=== PATIENT | female | born 1980 | race African-American/Black ===

== ENCOUNTER 2017-02-21 12:18 | Emergency (ER) | payer OTHER ==
[2017-02-21 12:26] VITALS: BP 126/72; PULSE 91; TEMP 98.5; BMI 28.3
[2017-02-21 13:45] LABS: BASOPHIL 1.1 % (0-2.0); EOSINOPHIL 1.6 % (0-4.5); MCH 22.8 pg (25.7-33.7); MCHC 30.6 g/dl (32.0-36.0); MEAN CELL VOLUME 74.4 fl (80-96); MEAN PLT VOLUME 7.5 fl (7.5-11.1); NEUTROPHILS 45.6 % (42.8-82.8); PLATELET COUNT 522 K/MM3 (134-434); RDW 27.3 % (11.6-15.6); WHITE BLOOD COUNT 4.5 K/mm3 (4.0-10.0)
--- NOTE | 2017-02-21 13:52 | PDOC ---
History of Present Illness - General History Source: Patient - History of Present Illness Timing/Duration: reports: constant <PamelaManpreet - Last Filed: 02/21/17 14:17> <Jese Bartlett - Last Filed: 02/23/17 09:10> - General Chief Complaint: Vaginal Bleeding Stated Complaint: VAGINAL BLEEDING Time Seen by Provider: 02/21/17 12:41 Past History - Past Medical History Anemia: Yes - Surgical History Appendectomy: Yes - Psycho/Social/Smoking Cessation Hx Anxiety: No Suicidal Ideation: No Smoking History: Never smoked Hx Alcohol Use: Yes (SOCIAL) Drug/Substance Use Hx: No Substance Use Type: None <Manpreet Santiago - Last Filed: 02/21/17 14:17> <Jese Bartlett - Last Filed: 02/23/17 09:10> - Past Medical History Allergies/Adverse Reactions: Allergies Allergy/AdvReac Type Severity Reaction Status Date / Time No Known Allergies Allergy Verified 02/21/17 12:25 Home Medications: Ambulatory Orders Iron 18 mg PO DAILY 02/21/17 Review of Systems - Review of Systems Constitutional: No: Malaise, Weakness Respiratory: No: Shortness of Breath ABD/GI: No: Nausea, Vomiting, Abdominal cramping <Manpreet Santiago - Last Filed: 02/21/17 14:17> *Physical Exam - Vital Signs Last Vital Signs Temp Pulse Resp BP Pulse Ox 98.5 F 91 H 20 126/72 100 02/21/17 12:22 02/21/17 12:22 02/21/17 12:22 02/21/17 12:22 02/21/17 12:22 - Physical Exam General Appearance: Yes: Appropriately Dressed. No: Apparent Distress HEENT: positive: Normal Voice Neck: positive: Supple Respiratory/Chest: positive: Lungs Clear, Normal Breath Sounds. negative: Respiratory Distress Cardiovascular: positive: Regular Rate, S1, S2 Female Pelvic Exam: positive: normal external exam, normal adnexa, vaginal bleeding, other (mod vag bleed). negative: CMT, discharge, adnexal tenderness Gastrointestinal/Abdominal: positive: Soft. negative: Tender Integumentary: positive: Dry, Warm Neurologic: positive: Fully Oriented, Alert, Normal Mood/Affect <Manpreet Santiago - Last Filed: 02/21/17 14:17> - Vital Signs Last Vital Signs Temp Pulse Resp BP Pulse Ox 98.5 F 91 H 20 126/72 100 02/21/17 12:22 02/21/17 12:22 02/21/17 12:22 02/21/17 12:22 02/21/17 12:22 <Jese Bartlett - Last Filed: 02/23/17 09:10> ED Treatment Course - LABORATORY CBC & Chemistry Diagram: 02/21/17 13:16 <Manpreet Santiago - Last Filed: 02/21/17 14:17> - LABORATORY CBC & Chemistry Diagram: 02/21/17 13:16 - ADDITIONAL ORDERS Additional order review: 02/21/17 13:16 RBC 4.48 MCV 74.4 L MCHC 30.6 L RDW 27.3 H MPV 7.5 Neutrophils % 45.6 Lymphocytes % 39.3 Monocytes % 12.4 H Eosinophils % 1.6 Basophils % 1.1 <Jese Bartlett - Last Filed: 02/23/17 09:10> Medical Decision Making - Medical Decision Making 02/21/17 13:20 36 -year-old female, history of dysfunctional uterine bleeding with no specific cause on previous workup with her [employer] as per patient, anemia, on iron pills, was put on control in December of this year, but not currently taking meds secondary to insurance issues per patient, presents with persistent vaginal bleeding. Patient states she has been bleeding since June of last year. States bleeding sometimes heavy and light. Denies any abdominal cramping, weakness, dizziness, nausea or vomiting. Patient states she is tired of bleeding and wants something done See exam DUB w/ persistent vag bleed Neg w/u in past including US per pt Not currently on OCPs 2/2 insurance issues Well sirisha and stable w/ mild to mod vag bleed on exam, abd benign -will check labs r/o worsening anemia and d/w dispo w/ [employer] 02/21/17 13:52 02/21/17 14:14 Case d/w Dr Porras, pt's labourers, aware of H/H. States pt can f/u in the office within the week. Pt currently stable for discharge 02/21/17 14:18 <Manpreet Santiago - Last Filed: 02/21/17 14:17> - Medical Decision Making 02/23/17 09:10 The patient was seen and evaluated in conjunction with WINNIE Santiago under my direct supervision, ancillary studies were reviewed. I agree with the plan as outlined by WINNIE Santiago . <Jese Bartlett - Last Filed: 02/23/17 09:10> *DC/Admit/Observation/Transfer <Manperet Santiago - Last Filed: 02/21/17 14:17> <Jese Bartlett - Last Filed: 02/23/17 09:10> Diagnosis at time of Disposition: DUB (dysfunctional uterine bleeding) - Discharge Dispostion Disposition: HOME Condition at time of disposition: Stable - Patient Instructions Printed Discharge Instructions: DI for Vaginal Bleeding Additional Instructions: Please follow up with your [employer] P[employer]ER
[2017-02-21 13:59] LABS: INR 1.04 (0.82-1.09); PROTHROMBIN TIME (PATIENT) 11.5 SEC (9.98-11.88)
[2017-02-21 14:21] LABS: ANISOCYTOSIS 2+; HYPOCHROMIA 1+; OVALOCYTES FEW; PLATELET ESTIMATE INCREASED (NORMAL)
[2017-02-21 14:23] LABS: HIV 1 & 2 AB NEGATIVE; HIV 1 AGp24 NEGATIVE
== END 2017-02-21 14:35 | disposition home or self-care (01) ==
LOC: JER 12:18
DX: N93.8 Other specified abnormal uterine and vaginal bleeding (principal)
CPT/HCPCS: 36415; 84703; 85025; 85610; 87389; 99282-25

== ENCOUNTER 2018-07-14 01:34 | Emergency (ER) | payer OTHER ==
[2018-07-14 01:55] VITALS: BP 143/76; PULSE 74; TEMP 97.6; BMI 25.8
[2018-07-14] MEDS ORDERED: METHOCARBAMOL 500 MG TABLET ONE (02:19)
[2018-07-14] MEDS ORDERED: METHOCARBAMOL 500 MG TABLET PO ONE (02:19)
[2018-07-14] MEDS ORDERED: ACETAMINOPHEN 1000 MG/100 ML VIAL (NON FORMULARY) IVPB ONE (02:21)
[2018-07-14] MEDS ORDERED: ACETAMINOPHEN INJECTION 100 ML IVPB ONE (02:28)
--- NOTE | 2018-07-14 02:28 | PDOC ---
History of Present Illness - General Chief Complaint: Back Pain Stated Complaint: BACK PAIN Time Seen by Provider: 07/14/18 02:04 History Source: Patient Exam Limitations: No Limitations - History of Present Illness Initial Comments: 37 y/o F hx of PCOS presents with nordatating LBP that started 5 days ago. Denies trauma or heavy work at the time. States her period later started that day, but the lower back pain grew worse. Was taking Alleve without much relief in pain. However, states yesterday, pain wasn't too bad. Then today, she carried some heavy groceries which made her back pain worse. States feels stiffness in her lower back. Denies prior back problems, back surgeries, fever, sob, cp, abd pain, n/v, dysuria, numbness/tingling/weakness of extremities, bowel/bladder incontinence. 07/14/18 02:23 Past History - Past Medical History Allergies/Adverse Reactions: Allergies Allergy/AdvReac Type Severity Reaction Status Date / Time No Known Allergies Allergy Verified 07/14/18 01:53 Home Medications: Ambulatory Orders Iron 18 mg PO DAILY 02/21/17 Methocarbamol [Robaxin -] 500 mg PO TID PRN #21 tablet 07/14/18 Anemia: Yes COPD: No HTN: Yes Other medical history: PCOS - Surgical History Appendectomy: Yes - Immunization History Immunization Up to Date: Yes - Suicide/Smoking/Psychosocial Hx Smoking History: Former smoker Have you smoked in the past 12 months: No Information on smoking cessation initiated: No Hx Alcohol Use: No Drug/Substance Use Hx: No Substance Use Type: None Trauma Specific PMHX - Complaint Specific PMHX Back Injury: No Neck Injury: No Hx Sacro Iliac Joint Dysfunction: No Review of Systems - Review of Systems Comments:: See HPI 07/14/18 02:28 *Physical Exam - Vital Signs Last Vital Signs Temp Pulse Resp BP Pulse Ox 97.6 F 74 20 143/76 99 07/14/18 01:53 07/14/18 01:53 07/14/18 01:53 07/14/18 01:53 07/14/18 01:53 - Physical Exam General Appearance: No: Apparent Distress Neck: positive: Supple Respiratory/Chest: positive: Lungs Clear, Normal Breath Sounds Cardiovascular: positive: Regular Rhythm, Regular Rate, S1, S2 Gastrointestinal/Abdominal: positive: Normal Bowel Sounds, Soft. negative: Tender, Distended, Guarding, Rebound, Tenderness Musculoskeletal: positive: Muscle Spasm. negative: CVA Tenderness, Vertebral Tenderness Extremity: positive: Normal Inspection Neurologic: positive: manager print II-XII NML intact, Fully Oriented, Alert, Normal Mood/ Affect, Motor Strength 5/5. negative: Numbness, Sensory Deficit ED Treatment Course - Medications Given in the ED: ED Medications Discontinued Medications Generic Name Dose Route Start Last Admin Trade Name Lyndonq PRN Reason Stop Dose Admin Methocarbamol 1,000 mg 07/14/18 02:19 07/14/18 02:22 Robaxin - PO 07/14/18 02:20 1,000 mg ONCE ONE Administration Medical Decision Making - Medical Decision Making 37 y/o F hx of PCOS presents with atraumatic, nonradiating LBP, worsened after lifting heavy groceries. Patient also with recent start of her menstruation cycle. Could possibly be muscle spasm/strain given pain is worse with movement of spine. However, will also check test. Unlikely cauda equina, kidney stones, pyelo, UTI Plan: UCG, Tylenol, Robaxin 07/14/18 02:30 UCG negative Patient given Tylenol, Robaxin and Toradol On reassessment, patient still with some muscle stiffness but improved from before New rx: Robaxin 07/14/18 04:35 *DC/Admit/Observation/Transfer Diagnosis at time of Disposition: Muscle spasm of back - Discharge Dispostion Disposition: HOME Condition at time of disposition: Good Decision to Admit order: No - Prescriptions Prescriptions: Methocarbamol [Robaxin -] 500 mg PO TID PRN #21 tablet PRN Reason: Muscle Spasms - Referrals Referrals: Kaykay Reyes MD [Non Staff, Medical] - 3 days - Patient Instructions Printed Discharge Instructions: DI for Back Spasm - Post Discharge Activity Forms/Work/School Notes: Back to Work
[2018-07-14] MEDS ORDERED: KETOROLAC TROMETHAMINE 60 MG/2 ML VIAL IM ONE (03:39)
[2018-07-14] MEDS ORDERED: KETOROLAC TROMETHAMINE 60 MG/2 ML VIAL ONE (04:01)
== END 2018-07-14 04:48 | disposition home or self-care (01) ==
LOC: JER 01:34
PROC: 3E0233Z Introduction of Anti-inflammatory into Muscle, Percutaneous Approach (ICD-10-PCS; principal; 2018-07-14)
PROC: 3E033NZ Introduction of Analgesics, Hypnotics, Sedatives into Peripheral Vein, Percutaneous Approach (ICD-10-PCS; 2018-07-14)
DX: M62.830 Muscle spasm of back (principal); M54.5 Low back pain; I10 Essential (primary) hypertension; D64.9 Anemia, unspecified; E28.2 Polycystic ovarian syndrome
CPT/HCPCS: 84703; 99282-25; J0131

== ENCOUNTER 2022-06-07 14:33 | Emergency (ER) | payer OTHER ==
[2022-06-07 14:41] VITALS: BP 152/97; PULSE 80; RESP 18; TEMP 98.1; BMI 28.1
[2022-06-07] MEDS ORDERED: SODIUM CHLORIDE 1,000 ML IV STA (15:49)
[2022-06-07] MEDS ORDERED: ACETAMINOPHEN 1000 MG/100 ML BAG IVPB ONE (15:50)
[2022-06-07] MEDS ORDERED: ACETAMINOPHEN INJECTION 100 ML IVPB ONE (16:04)
[2022-06-07 16:47] LABS: PH,URINE >= 9.0 (5.0-8.0); URINE APPEARANCE CLEAR; URINE BILIRUBIN NEGATIVE (NEGATIVE); URINE COLOR YELLOW; URINE GLUCOSE (UA) NEGATIVE (NEGATIVE); URINE KETONE NEGATIVE (NEGATIVE); URINE LEUK ESTERASE NEGATIVE (NEGATIVE); URINE NITRITE NEGATIVE (NEGATIVE); URINE PROTEIN NEGATIVE (NEGATIVE); URINE UROBILINOGEN 0.2 mg/dL (0.2-1.0)
[2022-06-07 16:49] LABS: HCG,QUALITATIVE URINE Negative
[2022-06-07 17:31] LABS: BASO % 0.5 % (0-2.0); HEMATOCRIT 36.1 % (32.4-45.2); HEMOGLOBIN 11.4 GM/dL (10.7-15.3); MCH 26.3 pg (25.7-33.7); MCHC 31.4 g/dl (32.0-36.0); MEAN CELL VOLUME 83.7 fl (80-96); MEAN PLT VOLUME 7.9 fl (7.5-11.1); MONO % 14.9 % (3.8-10.2); NEUT % 44.6 % (42.8-82.8); PLATELET COUNT 387 10^3/uL (134-434); RBC 4.32 M/mm3 (3.60-5.2)
[2022-06-07 17:50] LABS: ALBUMIN 3.7 g/dl (3.4-5.0); BLOOD UREA NITROGEN 14.2 mg/dL (7-18); CALCIUM 9.2 mg/dL (8.5-10.1)
[2022-06-07 17:53] LABS: CREATININE 0.6 mg/dL (0.55-1.3)
[2022-06-07 17:55] LABS: BILIRUBIN,TOTAL 0.4 mg/dL (0.2-1); TOT PROT 7.8 g/dl (6.4-8.2)
[2022-06-07] MEDS ORDERED: KETOROLAC TROMETHAMINE 30 MG/1 ML VIAL ONE (20:11)
[2022-06-07] MEDS ORDERED: KETOROLAC TROMETHAMINE 30 MG/1 ML VIAL IM ONE (20:11)
== END 2022-06-07 20:15 | disposition home or self-care (01) ==
LOC: JERFT 14:33 → JER 14:33 → JERFT 20:15
PROC: 3E033GC Introduction of Other Therapeutic Substance into Peripheral Vein, Percutaneous Approach (ICD-10-PCS; principal; 2022-06-07)
PROC: 3E023GC Introduction of Other Therapeutic Substance into Muscle, Percutaneous Approach (ICD-10-PCS; principal; 2022-06-07)
DX: N83.292 Other ovarian cyst, left side (principal)
CPT/HCPCS: 36415; 76830-TC; 80053; 81003; 83690; 84703; 85025; 87086; 99284-25

== ENCOUNTER 2024-06-23 10:55 | Emergency (ER) | payer OTHER ==
[2024-06-23 11:07] VITALS: RESP 18; BMI 27.1
[2024-06-23 13:15] VITALS: BP 148/101; PULSE 74; TEMP 98.6
== END 2024-06-23 13:24 | disposition home or self-care (01) ==
LOC: JER 10:55
DX: I10 Essential (primary) hypertension (principal)
CPT/HCPCS: 99283-25